=== PATIENT | female | born 2000 | race Caucasian/White ===

== ENCOUNTER 2019-01-01 18:11 | Emergency (ER) | payer BC, OTHER ==
[2019-01-01 18:23] VITALS: BP 110/66
--- NOTE | 2019-01-01 18:43 | EDM.PDOC ---
ED HPI GENERAL MEDICAL PROBLEM - General Chief Complaint: ENT Problem Stated Complaint: SORE THROAT Time Seen by Provider: 01/01/19 18:17 Source of Information: Reports: Patient History Limitations: Reports: No Limitations - History of Present Illness INITIAL COMMENTS - FREE TEXT/NARRATIVE: HISTORY AND PHYSICAL: History of present illness: Patient is a 18-year-old female who presents to the emergency room with complaints of sore throat. Patient does have a history of tonsillitis and strep throat. She states previously she had been on "for different antibiotics" did have a drug reaction to these. She states she cannot take any penicillins or doxycycline's. She denies any fever, chills, chest pain, shortness of breath or cough. Denies any GI or symptoms. She has been eating and drinking minimally as this does cause pain. Voiding and having regular bowel movements. Review of systems: As per history of present illness and below otherwise all systems reviewed and negative. Past medical history: As per history of present illness and as reviewed below otherwise noncontributory. Surgical history: As per history of present illness and as reviewed below otherwise noncontributory. Social history: See social history for further information Family history: As per history of present illness and as reviewed below otherwise noncontributory. Physical exam: General: Well-developed and well-nourished 18-year-old female. Alert and oriented. Nontoxic appearing and in no acute distress. HEENT: Atraumatic, normocephalic, pupils equal and reactive bilaterally, negative for conjunctival pallor or scleral icterus, mucous membranes moist, TMs normal bilaterally, +1 tonsillar swelling equal bilaterally with exudate and erythema (no evidence of pillar shifting/concern for abscess), neck supple, nontender, trachea midline. No drooling or trismus noted. No meningeal signs. No hot potato voice noted. Lungs: Clear to auscultation, breath sounds equal bilaterally, chest nontender. Heart: S1S2, regular rate and rhythm without overt murmur Abdomen: Soft, nondistended, nontender. Negative for masses or hepatosplenomegaly. Negative for costovertebral tenderness. Pelvis: Stable nontender. Genitourinary: Deferred. Rectal: Deferred. Skin: Intact, warm, dry. No lesions or rashes noted. Extremities: Atraumatic, negative for cords or calf pain. Neurovascular unremarkable. Neuro: Awake, alert, oriented. Cranial nerves II through XII unremarkable. Cerebellum unremarkable. Motor and sensory unremarkable throughout. Exam nonfocal. Notes: Patient has exudate on the bilateral tonsils, I will treat with clindamycin and give some Phenergan with codeine as she states this is very painful and not relieved with any [id number] products. I encouraged her to follow up with the bench shear operator as she may need to consider a tonsillectomy. Supportive care measures were reviewed and discussed. Voices understanding and is agreeable to plan of care. Denies any further questions or concerns at this time. Diagnostics: None Therapeutics: None Prescription: Clindamycin Phenergan with codeine Impression: Pharyngitis Plan: 1. Take your medication as directed. 2. Warm Salt water gargles (rinse and spit) 3-4 x daily. Please get a new tooth brush after completion of your medication 3. Tylenol and or ibuprofen as needed for pain management. 4. Follow-up with your primary care provider in the next 1-2 days. Return to the ED as needed and as discussed. Definitive disposition and diagnosis as appropriate pending reevaluation and review of above. 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 Musculoskeletal History: Reports: None Neurological History: Reports: Concussion Psychiatric History: Reports: ADHD, Anxiety, Bipolar, Depression, Suicide Attempt, Suicidal Ideation Endocrine/Metabolic History: Reports: None Hematologic History: Reports: None Immunologic History: Reports: None Oncologic (Cancer) History: Reports: None Dermatologic History: Reports: None - Infectious Disease History Infectious Disease History: Reports: Chicken Pox - Past Surgical History Head Surgeries/Procedures: Reports: None HEENT Surgical History: Reports: Oral Surgery Social & Family History - Family History Family Medical History: Noncontributory - Caffeine Use Caffeine Use: Reports: Coffee ED ROS ENT - Review of Systems Review Of Systems: ROS reveals no pertinent complaints other than HPI. ED EXAM, ENT - Physical Exam Exam: See Below (See dictation) Course - Vital Signs Last Recorded V/S: Last Vital Signs Temp 98.3 F 01/01/19 18:21 Pulse 108 H 01/01/19 18:21 Resp 18 01/01/19 18:21 BP 110/66 01/01/19 18:21 Pulse Ox 95 01/01/19 18:21 Departure - Departure Time of Disposition: 18:43 Disposition: Home, Self-Care 01 Clinical Impression: Pharyngitis Qualifiers: Pharyngitis/tonsillitis etiology: unspecified etiology Qualified Code(s): J02.9 - Acute pharyngitis, unspecified - Discharge Information Instructions: Pharyngitis, [id number] Referrals: PCP,Unknown [Primary Care Provider] - Forms: ED Department Discharge Additional Instructions: The following information is given to patients seen in the emergency department who are being discharged to home. This information is to outline your options for follow-up care. We provide all patients seen in our emergency department with a follow-up referral. The need for follow-up, as well as the timing and circumstances, are variable depending upon the specifics of your emergency department visit. If you don't have a primary care physician on staff, we will provide you with a referral. We always advise you to contact your personal physician following an emergency department visit to inform them of the circumstance of the visit and for follow-up with them and/or the need for any referrals to a consulting specialist. The emergency department will also refer you to a specialist when appropriate. This referral assures that you have the opportunity for follow-up care with a specialist. All of these measure are taken in an effort to provide you with optimal care, which includes your follow-up. Under all circumstances we always encourage you to contact your private physician who remains a resource for coordinating your care. When calling for follow-up care, please make the office aware that this follow-up is from your recent emergency room visit. If for any reason you are refused follow-up, please contact the [facility] Emergency Department at and asked to speak to the emergency department charge nurse. LAVINIA [facility] [address] [place] [address] [facility] [address] [place] [id number] 1. Take your medication as directed. 2. Warm Salt water gargles (rinse and spit) 3-4 x daily. Please get a new tooth brush after completion of your medication 3. Tylenol and or ibuprofen as needed for pain management. 4. Follow-up with your primary care provider in the next 1-2 days. Return to the ED as needed and as discussed.
== END 2019-01-01 18:56 | disposition home or self-care (01) ==
LOC: MW.ED 18:11
DX: J02.9 Acute pharyngitis, unspecified (principal); Z88.1 Allergy status to other antibiotic agents; Z88.8 Allergy status to other drugs, medicaments and biological substances; Z79.899 Other long term (current) drug therapy
CPT/HCPCS: 99283

== ENCOUNTER 2019-11-27 15:58 | Emergency (ER) | payer BC ==
--- NOTE | 2019-11-27 16:38 | EDM.PDOC ---
ED HPI GENERAL MEDICAL PROBLEM - General Chief Complaint: ENT Problem Stated Complaint: flu, ear infection Time Seen by Provider: 11/27/19 16:08 Source of Information: Reports: Patient History Limitations: Reports: No Limitations - History of Present Illness INITIAL COMMENTS - FREE TEXT/NARRATIVE: Patient is a 19-year-old female who is complaining of having a sore throat and flulike symptoms for the last several days. She is complaining having pain to her right ear and her right throat is painful. Patient also states she had a fainting spell recently and may have fallen injuring her right flank. Is any dysuria or hematuria. She has not been nauseous or vomiting. Pain is worse when she moves her feels that area though has no bruising or contusion present. She denies any chest or rib pain. Duration: Getting Worse Location: Reports: Face, Abdomen Quality: Reports: Ache Severity: Moderate Improves with: Reports: None Worsens with: Reports: Eating Associated Symptoms: Reports: No Other Symptoms. Denies: Cough, Fever/Chills, Headaches, Nausea/Vomiting throat Pain Score (Numeric/FACES): 7 - Related Data Allergies Allergy/AdvReac Type Severity Reaction Status Date / Time amoxicillin Allergy Hives Verified 01/01/19 18:20 doxycycline Allergy Hives Verified 10/16/18 19:21 Penicillins Allergy Hives Verified 11/27/19 16:15 Home Meds: Home Meds Venlafaxine [Effexor] 200 mg PO DAILY 10/14/18 [History] lamoTRIgine [Lamictal] 50 mg PO DAILY 10/14/18 [History] Past Medical History - Past Health History Medical/Surgical History: Denies Medical/Surgical History Cardiovascular History: Reports: None Respiratory History: Reports: None Gastrointestinal History: Reports: None Genitourinary History: Reports: None 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 Musculoskeletal History: Reports: None Neurological History: Reports: Concussion Psychiatric History: Reports: ADHD, Anxiety, Bipolar, Depression, Suicide Attempt, Suicidal Ideation Endocrine/Metabolic History: Reports: None Hematologic History: Reports: None Immunologic History: Reports: None Oncologic (Cancer) History: Reports: None Dermatologic History: Reports: None - Infectious Disease History Infectious Disease History: Reports: Chicken Pox - Past Surgical History Head Surgeries/Procedures: Reports: None HEENT Surgical History: Reports: Oral Surgery Social & Family History - Family History Family Medical History: Noncontributory - Tobacco Use Smoking Status *Q: Current Every Day Smoker Years of Tobacco use: 3 Packs/Tins Daily: 1 - Caffeine Use Caffeine Use: Reports: Coffee - Recreational Drug Use Recreational Drug Use: No ED ROS ENT - Review of Systems Review Of Systems: Comprehensive ROS is negative, except as noted in HPI. ED EXAM, ENT - Physical Exam Exam: See Below Text/Narrative:: Exam: See Below Exam Limited By: No Limitations Head: Atraumatic Neck: Normal Inspection. No: Carotid Bruit, Lymphadenopathy (R) Respiratory/Chest: No Respiratory Distress, Lungs Clear, Normal Breath Sounds, No Accessory Muscle Use. No: Chest Non-Tender Cardiovascular: Normal Peripheral Pulses, Regular Rate, Rhythm, No Edema, No JVD GI/Abdominal: Normal Bowel Sounds, Tender on right flank mildly. There is no mass or guarding. Back Exam: Normal Inspection. No: CVA Tenderness (R) Extremities: Normal Inspection. No: No Pedal Edema Neurological: Alert, Oriented, Normal Cognition Psychiatric: Normal Affect Skin Exam: Warm Lymphatic: No Adenopathy Course - Vital Signs Text/Narrative:: Patient's urine is completely normal. Her influenza and strep screens are both negative. I feel that she has worse while laying on her right tonsil which may be early peritonsillar abscess. I am putting her on clindamycin for this. I am recommending that she take children's ibuprofen. Last Recorded V/S: Last Vital Signs Temp 37.2 C 11/27/19 16:16 Pulse 103 H 11/27/19 16:16 Resp 16 11/27/19 16:16 BP 115/64 11/27/19 16:16 Pulse Ox 98 11/27/19 16:16 - Orders/Labs/Meds Orders: Active Orders 24 hr Category Date Time Status CULTURE STREP A CONFIRMATION [RM] Stat Lab 11/27/19 16:27 Results STREP SCRN A RAPID W CULT CONF [RM] Stat Lab 11/27/19 16:27 Results UA W/MICROSCOPIC [URIN] Stat Lab 11/27/19 16:53 Results Labs: Laboratory Tests 11/27/19 Range/Units 16:53 Urine Color YELLOW Urine Appearance CLEAR Urine pH 6.5 (5.0-8.0) Ur Specific [place] 1.020 (1.001-1.035) Urine Protein NEGATIVE (NEGATIVE) mg/dL Urine Glucose (UA) NEGATIVE (NEGATIVE) mg/dL Urine Ketones NEGATIVE (NEGATIVE) mg/dL Urine Occult Blood NEGATIVE (NEGATIVE) Urine Nitrite NEGATIVE (NEGATIVE) Urine Bilirubin NEGATIVE (NEGATIVE) Urine Urobilinogen 1.0 (<2.0) EU/dL Ur Leukocyte Esterase NEGATIVE (NEGATIVE) Departure - Departure Time of Disposition: 17:33 Disposition: Home, Self-Care 01 Condition: Good Clinical Impression: Peritonsillar abscess - Discharge Information Instructions: Peritonsillar Abscess, [id number] Referrals: PCP,Unknown [Primary Care Provider] - Forms: ED Department Discharge Additional Instructions: Liquid ibuprofen as needed. Clindamycin as prescribed. Increase fluids. Return to ER if worse. Follow-up with PCP if symptoms continue. Care Plan Goals: The following information is given to patients seen in the emergency department who are being discharged to home. This information is to outline your options for follow-up care. We provide all patients seen in our emergency department with a follow-up referral. The need for follow-up, as well as the timing and circumstances, are variable depending upon the specifics of your emergency department visit. If you don't have a primary care physician on staff, we will provide you with a referral. We always advise you to contact your personal physician following an emergency department visit to inform them of the circumstance of the visit and for follow-up with them and/or the need for any referrals to a consulting specialist. The emergency department will also refer you to a specialist when appropriate. This referral assures that you have the opportunity for follow-up care with a specialist. All of these measure are taken in an effort to provide you with optimal care, which includes your follow-up. Under all circumstances we always encourage you to contact your private physician who remains a resource for coordinating your care. When calling for follow-up care, please make the office aware that this follow-up is from your recent emergency room visit. If for any reason you are refused follow-up, please contact the [facility] Emergency Department at and asked to speak to the emergency department charge nurse. Sepsis Event Note - Evaluation Sepsis Screening Result: Possible Sepsis Risk - Focused Exam Vital Signs: Vital Signs Temp Pulse Resp BP Pulse Ox 11/27/19 16:16 37.2 C 103 H 16 115/64 98 Date Exam was Performed: 11/27/19 Time Exam was Performed: 17:29 - My Orders Last 24 Hours: My Active Orders 11/27/19 16:53 UA W/MICROSCOPIC [URIN] Stat - Assessment/Plan Last 24 Hours: My Active Orders 11/27/19 16:53 UA W/MICROSCOPIC [URIN] Stat
[2019-11-27 18:07] VITALS: BP 124/64; PULSE 107
== END 2019-11-27 18:00 | disposition home or self-care (01) ==
LOC: MW.ED 15:58
DX: J36 Peritonsillar abscess (principal); F41.9 Anxiety disorder, unspecified; F32.9 Major depressive disorder, single episode, unspecified; F17.210 Nicotine dependence, cigarettes, uncomplicated; Z88.1 Allergy status to other antibiotic agents; Z88.0 Allergy status to penicillin; Z79.899 Other long term (current) drug therapy
CPT/HCPCS: 81001; 87081; 87804; 87880-QW; 99283

== ENCOUNTER 2020-02-26 06:54 | Emergency (ER) | payer BC ==
--- NOTE | 2020-02-26 07:17 | EDM.PDOC ---
ED HPI GENERAL MEDICAL PROBLEM - General Chief Complaint: Genitourinary Problem Stated Complaint: HURTS WHEN URINATE Time Seen by Provider: 02/26/20 07:06 Source of Information: Reports: Patient History Limitations: Reports: No Limitations - History of Present Illness Duration: Hour(s): (5) Location: Reports: Back, Radiates to (Left flank) Quality: Reports: Burning, Pressure (left flank) Severity: Moderate Improves with: Reports: None Worsens with: Reports: None Associated Symptoms: Reports: No Other Symptoms right flank Pain Score (Numeric/FACES): 8 - Related Data Allergies Allergy/AdvReac Type Severity Reaction Status Date / Time amoxicillin Allergy Hives Verified 02/26/20 07:01 doxycycline Allergy Hives Verified 02/26/20 07:01 Penicillins Allergy Hives Verified 02/26/20 07:01 Home Meds: Home Meds Venlafaxine [Effexor] 200 mg PO DAILY 10/14/18 [History] lamoTRIgine [Lamictal] 37.5 mg PO DAILY 10/14/18 [History] Estrogens,Esterified [Menest] 02/26/20 [History] Past Medical History - Past Health History Medical/Surgical History: Denies Medical/Surgical History Cardiovascular History: Reports: None Respiratory History: Reports: None Gastrointestinal History: Reports: None Genitourinary History: Reports: None 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 Musculoskeletal History: Reports: None Neurological History: Reports: Concussion Psychiatric History: Reports: ADHD, Anxiety, Bipolar, Depression, Suicide Attempt, Suicidal Ideation Endocrine/Metabolic History: Reports: None Hematologic History: Reports: None Immunologic History: Reports: None Oncologic (Cancer) History: Reports: None Dermatologic History: Reports: None - Infectious Disease History Infectious Disease History: Reports: Chicken Pox - Past Surgical History Head Surgeries/Procedures: Reports: None HEENT Surgical History: Reports: Oral Surgery Social & Family History - Family History Family Medical History: Noncontributory - Tobacco Use Smoking Status *Q: Current Every Day Smoker Years of Tobacco use: 3 Packs/Tins Daily: 0.1 - Caffeine Use Caffeine Use: Reports: Energy Drinks - Recreational Drug Use Recreational Drug Use: No ED ROS GENERAL - Review of Systems Review Of Systems: See Below Constitutional: Reports: No Symptoms, Weakness HEENT: Reports: No Symptoms Respiratory: Reports: No Symptoms Cardiovascular: Reports: No Symptoms Endocrine: Reports: No Symptoms GI/Abdominal: Reports: No Symptoms : Reports: Dysuria, Flank Pain, Frequency Musculoskeletal: Reports: No Symptoms Skin: Reports: No Symptoms Neurological: Reports: No Symptoms Psychiatric: Reports: No Symptoms Hematologic/Lymphatic: Reports: No Symptoms Immunologic: Reports: No Symptoms ED EXAM, RENAL/ - Physical Exam Exam: See Below Exam Limited By: No Limitations General Appearance: Alert, WD/WN, No Apparent Distress Eye Exam: Bilateral Eye: Normal Fundi, Normal Inspection, PERRL Ears: Normal External Exam, Normal Canal, Hearing Grossly Normal, Normal TMs Nose: Normal Inspection, Normal Mucosa, No Blood Throat/Mouth: Normal Inspection, Normal Lips, Normal Teeth, Normal Gums, Normal Oropharynx, No Airway Compromise Head: Atraumatic, Normocephalic Neck: Normal Inspection, Supple, Non-Tender, Full Range of Motion Respiratory/Chest: No Respiratory Distress, Lungs Clear, Normal Breath Sounds, No Accessory Muscle Use Cardiovascular: Normal Peripheral Pulses, Regular Rate, Rhythm, No Edema, No Gallop, No JVD, No Murmur GI/Abdominal: Normal Bowel Sounds, Soft, Non-Tender, No Organomegaly, No Distention, No Abnormal Bruit (Female) Exam: Deferred Rectal (Female) Exam: Deferred Back Exam: Normal Inspection Extremities: Normal Inspection, Normal Range of Motion Neurological: Alert, Oriented, CN II-XII Intact, Normal Cognition, Normal Gait, Normal Reflexes, No Motor/Sensory Deficits Psychiatric: Normal Affect, Normal Mood Skin Exam: Warm, Dry, Intact, Normal Color, No Rash Lymphatic: No Adenopathy Course - Vital Signs Text/Narrative:: 19-year-old female presents to the emergency room with a chief complaint of left flank pain and burning on urination for the past 6 hours. Patient denies fever and chills. Patient denies nausea vomiting diarrhea. Patient denies being because she is on control medication. Never had similar symptoms in the past. The patient's CT scan shows a possible early urinary tract infection. The patient's UA shows early UTI possibly. Patient will be discharged home. CT scan shows no evidence of stones Last Recorded V/S: Last Vital Signs Temp 96.9 F 02/26/20 07:02 Pulse 99 02/26/20 07:02 Resp 18 02/26/20 07:02 BP 112/72 02/26/20 07:02 Pulse Ox 99 02/26/20 07:02 - Orders/Labs/Meds Orders: Active Orders 24 hr Category Date Time Status CULTURE URINE [RM] Stat Lab 02/26/20 07:10 Received Labs: Laboratory Tests 02/26/20 02/26/20 Range/Units 07:10 07:10 Urine Color YELLOW Urine Appearance SLT CLOUDY Urine pH 6.0 (5.0-8.0) Ur Specific [place] 1.020 (1.001-1.035) Urine Protein 30 H (NEGATIVE) mg/dL Urine Glucose (UA) NEGATIVE (NEGATIVE) mg/dL Urine Ketones NEGATIVE (NEGATIVE) mg/dL Urine Occult Blood MODERATE H (NEGATIVE) Urine Nitrite NEGATIVE (NEGATIVE) Urine Bilirubin NEGATIVE (NEGATIVE) Urine Urobilinogen 0.2 (<2.0) EU/dL Ur Leukocyte Esterase TRACE H (NEGATIVE) Urine RBC 5-8 (0-2/HPF) Urine WBC 1-3 (0-5/HPF) Ur Epithelial Cells FEW (NONE-FEW) Urine Bacteria FEW (NEGATIVE) Urine Mucus LIGHT (NONE-MOD) Urine HCG, Qual NEGATIVE (NEGATIVE) Meds: Medications Discontinued Medications Generic Name Dose Route Start Last Admin Trade Name Freq PRN Reason Stop Dose Admin Sodium Chloride 1,000 mls @ 1,000 mls/hr 02/26/20 07:27 02/26/20 07:43 Normal Saline IV 02/26/20 08:26 1,000 mls/hr .Bolus ONE Administration Ketorolac Tromethamine 30 mg 02/26/20 07:27 02/26/20 07:43 Toradol IVPUSH 02/26/20 07:28 30 mg ONETIME ONE Administration Departure - Departure Time of Disposition: 09:43 Disposition: Home, Self-Care 01 Clinical Impression: UTI, Urinary tract infectious disease - Discharge Information Instructions: Urinary Tract Infection, Adult, [id number] Referrals: Valerie Berman DIRECTOR OF EMERGENCY NURSING [Primary Care Provider] - Forms: ED Department Discharge Sepsis Event Note - Evaluation Sepsis Screening Result: No Definite Risk - Focused Exam Vital Signs: Vital Signs Temp Pulse Resp BP Pulse Ox 02/26/20 07:02 96.9 F 99 18 112/72 99 Date Exam was Performed: 02/26/20 Time Exam was Performed: 09:40 - My Orders Last 24 Hours: My Active Orders 02/26/20 07:10 CULTURE URINE [] Stat - Assessment/Plan Last 24 Hours: My Active Orders 02/26/20 07:10 CULTURE URINE [] Stat
[2020-02-26] MEDS ORDERED: Sodium Chloride 0.9% 1,000 ML IV ONE (07:27)
[2020-02-26] MEDS ORDERED: Ketorolac 30 MG/ML SDV IVPUSH ONE (07:27)
--- NOTE | 2020-02-26 09:32 | CT ---
CT abdomen and pelvis Technique: Multiple axial sections were obtained from above the dome of the diaphragm inferiorly through the pubic symphysis. Intravenous and oral contrast was not utilized. Study has been performed as a ureteral stone protocol. Comparison: Prior CT abdomen and pelvis study of 10/16/18. Findings: Kidneys show no abnormal calcifications. No ureteral dilatation or ureteral stone is seen. No bladder calculi are noted. Visualized lung bases show nothing acute. Noncontrast appearance of the liver and spleen appear within normal limits. Adrenal glands show no nodule. Pancreas is within normal limits. Gallbladder contains no calcified gallstones. Aorta shows no aneurysm. No retroperitoneal adenopathy or mesenteric abnormalities are seen. Appendix is seen which is normal in size. No free fluid or inflammatory change is seen. No pelvic mass or adenopathy is noted. Impression: 1. No renal calculi, ureteral dilatation or ureteral stone is seen. 2. Nothing acute is appreciated on noncontrast CT study of the abdomen and pelvis. Diagnostic code #1 This report was dictated in MDT
[2020-02-26] MEDS ORDERED: Cephalexin 500 MG Cap PO ONE (09:45)
[2020-02-26 09:56] VITALS: BP 103/58; PULSE 82
== END 2020-02-26 09:59 | disposition home or self-care (01) ==
LOC: MW.ED 06:54
DX: N39.0 Urinary tract infection, site not specified (principal); F31.9 Bipolar disorder, unspecified; F41.9 Anxiety disorder, unspecified; F17.210 Nicotine dependence, cigarettes, uncomplicated; Z88.0 Allergy status to penicillin; Z88.1 Allergy status to other antibiotic agents; Z79.899 Other long term (current) drug therapy
CPT/HCPCS: 74176; 81001; 81025; 87086; 87088; 87186; 96361; 96374; 99284; A9270; J1885; J7030; 99283

== ENCOUNTER 2020-03-15 22:00 | Emergency (ER) | payer BC ==
[2020-03-15] MEDS ORDERED: Diltiazem 25 MG/5 ML SDV IVPUSH ONE (22:11)
[2020-03-15] MEDS ORDERED: Sodium Chloride 0.9% 10 ML Syringe FLUSH PRN (22:30)
[2020-03-15] MEDS ORDERED: Sodium Chloride 0.9% 1,000 ML IV ONE (22:30)
[2020-03-15] MEDS ORDERED: Sodium Chloride 0.9% 2.5 ML Syringe FLUSH PRN (22:30)
[2020-03-15 23:01] LABS: BLOOD UREA NITROGEN,BUN 8 mg/dL (7.0-18.0); CARBON DIOXIDE,CO2 24.9 mmol/L (21.0-32.0); CHLORIDE,CL 100 mmol/L (98-107); GLUCOSE RANDOM 127 mg/dL (74-106); POTASSIUM,K 3.6 mmol/L (3.5-5.1); SODIUM,NA 137 mmol/L (136-145)
--- NOTE | 2020-03-15 23:49 | EDM.PDOC ---
ED HPI GENERAL MEDICAL PROBLEM - General Chief Complaint: General Stated Complaint: FEVER, IN AND OUT OF CONSCIOUSNESS Time Seen by Provider: 03/15/20 22:03 Source of Information: Reports: Patient History Limitations: Reports: No Limitations - History of Present Illness INITIAL COMMENTS - FREE TEXT/NARRATIVE: 19-year-old female with past medical history of recent UTI, endometriosis, PID presenting with fever, abdominal pain, and generalized weakness. She reports a 2 to 3-day history of right flank pain, right lower quadrant abdominal pain, and fever at home. No self treatment prior to arrival. She was recently seen in our ED for UTI and finished a course of oral antibiotics. She complains of generalized weakness but no focal extremity numbness or weakness or other strokelike symptoms. No other complaints are voiced. - Related Data Allergies Allergy/AdvReac Type Severity Reaction Status Date / Time amoxicillin Allergy Hives Verified 03/15/20 22:13 doxycycline Allergy Hives Verified 03/15/20 22:13 Penicillins Allergy Hives Verified 03/15/20 22:13 Home Meds: Home Meds Venlafaxine [Effexor] 200 mg PO DAILY 10/14/18 [History] lamoTRIgine [Lamictal] 37.5 mg PO DAILY 10/14/18 [History] Estrogens,Esterified [Menest] 02/26/20 [History] cephALEXin [Keflex] 500 mg PO Q12H #10 cap 02/26/20 [Rx] Leuprolide [Lupron Depot 3-Month] mg INJECT ASDIRECTED 03/15/20 [History] Past Medical History - Past Health History Medical/Surgical History: Denies Medical/Surgical History Cardiovascular History: Reports: None Respiratory History: Reports: None Gastrointestinal History: Reports: None Genitourinary History: Reports: None [employer] History: Reports: Endometriosis, PID Musculoskeletal History: Reports: None Neurological History: Reports: Concussion Psychiatric History: Reports: ADHD, Anxiety, Bipolar, Depression, Suicide Attempt, Suicidal Ideation Endocrine/Metabolic History: Reports: None Hematologic History: Reports: None Immunologic History: Reports: None Oncologic (Cancer) History: Reports: None Dermatologic History: Reports: None - Infectious Disease History Infectious Disease History: Reports: None - Past Surgical History Head Surgeries/Procedures: Reports: None HEENT Surgical History: Reports: Oral Surgery Social & Family History - Family History Family Medical History: Noncontributory - Caffeine Use Caffeine Use: Reports: Energy Drinks - Recreational Drug Use Recreational Drug Use: Yes Recreational Drug Type: Reports: Marijuana/Hashish Recreational Drug Use Frequency: Rarely ED ROS GENERAL - Review of Systems Review Of Systems: See Below Constitutional: Reports: Fever, Weakness. Denies: Chills, Diaphoresis HEENT: Reports: No Symptoms Respiratory: Reports: Cough (Fleeting cough on the way to the emergency department). Denies: Shortness of Breath, Wheezing Cardiovascular: Denies: Chest Pain, Edema, Syncope Endocrine: Reports: Fatigue GI/Abdominal: Reports: Abdominal Pain, Nausea. Denies: Black Stool, Bloody Stool, Diarrhea, Decreased Appetite, Distension, Hematemesis, Hematochezia, Melena, Vomiting : Denies: Discharge, Dysuria, Flank Pain, Frequency, Urgency Musculoskeletal: Denies: Joint Swelling Skin: Denies: Jaundice, Rash Neurological: Denies: Headache, Paresthesia, Syncope, Tingling, Weakness Psychiatric: Reports: No Symptoms Hematologic/Lymphatic: Reports: No Symptoms Immunologic: Reports: No Symptoms ED EXAM, GENERAL - Physical Exam Exam: See Below Free Text/Narrative:: Vital signs reviewed. Nursing notes reviewed. Constitutional: Awake, alert, non-distressed, tired appearing. Head: Normocephalic, atraumatic. Eyes: EOMI, conjunctiva normal, no discharge, no scleral icterus. Ears, Nose, Throat: External ears and ears normal, moist oral mucosa. Cardiovascular: Tachycardic, 2+ radial pulse, capillary refill less than 2 seconds. Pulmonary: normal work of breathing, no accessory muscle use. Abdomen/GI: Soft, minimal tenderness in the right lower quadrant, nondistended, no guarding or rigidity, no masses. No CVA tenderness bilaterally. Musculoskeletal: No deformities. Integumentary: Appropriate color for ethnicity, warm, dry, no pallor or jaundice , no rash. Neurologic: Alert, answering questions appropriately, normal speech, no facial droop, moving all extremities symmetrically but with poor effort. Psychiatric: Appropriate mood and affect, normal thought process. Course - Vital Signs Text/Narrative:: Patient tachycardic, afebrile, well-appearing, looks nontoxic. Differential diagnosis includes but is not limited to: UTI, pyelonephritis, appendicitis, cholecystitis, intra-abdominal infection, bacteremia, electrolyte disturbance, volume depletion, anemia, etc. 2350: CBC shows normal cell lines. INR is within normal limits. Lactate is normal. Hepatic markers are reassuring. Troponin testing is negative. CRP is elevated at 7.20. test is negative. Urinalysis is bland, no evidence of infection. Awaiting imaging studies. CT imaging concerning for pyelonephritis. Urine culture added on. Heart rate now normal after fluids. Blood pressure 90s systolic with MAPs in the 70s. Patient appears comfortable and is feeling better. Stable to discharge home with a 14-day treatment of Bactrim DS (given recent Keflex treatment) along with [id number] acetaminophen and ibuprofen. Bactrim DS prescribed to [facility] machine. Strict ED return precautions provided. Discharged in good condition. Patient is stable to discharge home with outpatient primary care follow-up. Strict emergency department return precautions were provided, patient indicated understanding. All questions were answered prior to departure. Discharged in good condition. Last Recorded V/S: Last Vital Signs Temp 36.3 C 03/15/20 22:15 Pulse 89 03/16/20 02:06 Resp 18 03/16/20 02:06 BP 97/52 L 03/16/20 02:06 Pulse Ox 98 03/16/20 02:06 - Orders/Labs/Meds Orders: Active Orders 24 hr Category Date Time Status CULTURE BLOOD [BC] Stat Lab 03/15/20 22:30 Received CULTURE BLOOD [BC] Stat Lab 03/15/20 22:44 Received CULTURE URINE [RM] Stat Lab 03/16/20 00:00 Received Sodium Chloride 0.9% [Saline Flush] Med 03/15/20 22:30 Active 10 ml FLUSH ASDIRECTED PRN Sodium Chloride 0.9% [Saline Flush] Med 03/15/20 22:30 Active 2.5 ml FLUSH ASDIRECTED PRN Blood Culture x2 Reflex Set [OM.PC] Stat Oth 03/15/20 22:30 Ordered Pulse Oximetry Continuous Monitoring [OM.PC] Routine Oth 03/15/20 22:30 Ordered Saline Lock Insert [OM.PC] Stat Oth 03/15/20 22:30 Ordered Medication Orders Sodium Chloride (Saline Flush) 10 ml FLUSH ASDIRECTED PRN PRN Reason: Keep Vein Open Sodium Chloride (Saline Flush) 2.5 ml FLUSH ASDIRECTED PRN PRN Reason: Keep Vein Open Labs: Laboratory Tests 03/15/20 03/15/20 03/15/20 Range/Units 22:30 22:30 22:30 WBC 7.56 (4.0-11.0) K/uL RBC 4.17 L (4.30-5.90) M/uL Hgb 12.2 (12.0-16.0) g/dL Hct 37.3 (36.0-46.0) % MCV 89.4 (80.0-98.0) fL MCH 29.3 (27.0-32.0) pg MCHC 32.7 (31.0-37.0) g/dL RDW Std Deviation 39.8 (28.0-62.0) fl RDW Coeff of Lalita 12 (11.0-15.0) % Plt Count 269 (150-400) K/uL MPV 9.10 (7.40-12.00) fL Neut % (Auto) 72.0 (48.0-80.0) % Lymph % (Auto) 13.1 L (16.0-40.0) % Apache % (Auto) 14.6 (0.0-15.0) % Eos % (Auto) 0.0 (0.0-7.0) % Baso % (Auto) 0.3 (0.0-1.5) % Neut # (Auto) 5.5 (1.4-5.7) K/uL Lymph # (Auto) 1.0 (0.6-2.4) K/uL [place] # (Auto) 1.1 H (0.0-0.8) K/uL Eos # (Auto) 0.0 (0.0-0.7) K/uL Baso # (Auto) 0.0 (0.0-0.1) K/uL Nucleated RBC % 0.0 /100WBC Nucleated RBCs # 0 K/uL INR 1.04 Lactate 0.8 (0.20-2.00) mmol/L Sodium (136-145) mmol/L Potassium (3.5-5.1) mmol/L Chloride (98-107) mmol/L Carbon Dioxide (21.0-32.0) mmol/L BUN (7.0-18.0) mg/dL Creatinine (0.6-1.0) mg/dL Est Cr Clr Drug Dosing mL/min Estimated GFR (MDRD) ml/min Glucose (74-106) mg/dL Calcium (8.5-10.1) mg/dL Total Bilirubin (0.2-1.0) mg/dL AST (15-37) IU/L ALT (14-63) IU/L Alkaline Phosphatase (46-116) U/L Troponin I (0.000-0.056) ng/mL C-Reactive Protein (0.00-0.90) mg/dL Total Protein (6.4-8.2) g/dL Albumin (3.4-5.0) g/dL Globulin (2.6-4.0) g/dL Albumin/Globulin Ratio (0.9-1.6) HCG, Qual (NEG) Urine Color Urine Appearance Urine pH (5.0-8.0) Ur Specific [place] (1.001-1.035) Urine Protein (NEGATIVE) mg/dL Urine Glucose (UA) (NEGATIVE) mg/dL Urine Ketones (NEGATIVE) mg/dL Urine Occult Blood (NEGATIVE) Urine Nitrite (NEGATIVE) Urine Bilirubin (NEGATIVE) Urine Urobilinogen (<2.0) EU/dL Ur Leukocyte Esterase (NEGATIVE) Urine RBC (0-2/HPF) Urine WBC (0-5/HPF) Ur Epithelial Cells (NONE-FEW) Urine Bacteria (NEGATIVE) 03/15/20 03/15/20 03/15/20 Range/Units 22:30 22:30 23:16 WBC (4.0-11.0) K/uL RBC (4.30-5.90) M/uL Hgb (12.0-16.0) g/dL Hct (36.0-46.0) % MCV (80.0-98.0) fL MCH (27.0-32.0) pg MCHC (31.0-37.0) g/dL RDW Std Deviation (28.0-62.0) fl RDW Coeff of Lalita (11.0-15.0) % Plt Count (150-400) K/uL MPV (7.40-12.00) fL Neut % (Auto) (48.0-80.0) % Lymph % (Auto) (16.0-40.0) % [place] % (Auto) (0.0-15.0) % Eos % (Auto) (0.0-7.0) % Baso % (Auto) (0.0-1.5) % Neut # (Auto) (1.4-5.7) K/uL Lymph # (Auto) (0.6-2.4) K/uL [place] # (Auto) (0.0-0.8) K/uL Eos # (Auto) (0.0-0.7) K/uL Baso # (Auto) (0.0-0.1) K/uL Nucleated RBC % /100WBC Nucleated RBCs # K/uL INR Lactate (0.20-2.00) mmol/L Sodium 137 (136-145) mmol/L Potassium 3.6 (3.5-5.1) mmol/L Chloride 100 (98-107) mmol/L Carbon Dioxide 24.9 (21.0-32.0) mmol/L BUN 8 (7.0-18.0) mg/dL Creatinine 0.9 (0.6-1.0) mg/dL Est Cr Clr Drug Dosing 78.20 mL/min Estimated GFR (MDRD) > 60.0 ml/min Glucose 127 H (74-106) mg/dL Calcium 8.6 (8.5-10.1) mg/dL Total Bilirubin 0.5 (0.2-1.0) mg/dL AST 19 (15-37) IU/L ALT 42 (14-63) IU/L Alkaline Phosphatase 86 (46-116) U/L Troponin I < 0.050 (0.000-0.056) ng/mL C-Reactive Protein 7.20 H (0.00-0.90) mg/dL Total Protein 7.6 (6.4-8.2) g/dL Albumin 3.9 (3.4-5.0) g/dL Globulin 3.7 (2.6-4.0) g/dL Albumin/Globulin Ratio 1.1 (0.9-1.6) HCG, Qual NEGATIVE (NEG) Urine Color YELLOW Urine Appearance CLEAR Urine pH 6.5 (5.0-8.0) Ur Specific [place] <= 1.005 (1.001-1.035) Urine Protein NEGATIVE (NEGATIVE) mg/dL Urine Glucose (UA) NEGATIVE (NEGATIVE) mg/dL Urine Ketones NEGATIVE (NEGATIVE) mg/dL Urine Occult Blood NEGATIVE (NEGATIVE) Urine Nitrite NEGATIVE (NEGATIVE) Urine Bilirubin NEGATIVE (NEGATIVE) Urine Urobilinogen 0.2 (<2.0) EU/dL Ur Leukocyte Esterase NEGATIVE (NEGATIVE) Urine RBC 0-1 (0-2/HPF) Urine WBC 0-2 (0-5/HPF) Ur Epithelial Cells RARE (NONE-FEW) Urine Bacteria RARE (NEGATIVE) Meds: Medications Generic Name Dose Route Start Last Admin Trade Name Freq PRN Reason Stop Dose Admin Sodium Chloride 10 ml 03/15/20 22:30 Saline Flush FLUSH ASDIRECTED PRN Keep Vein Open Sodium Chloride 2.5 ml 03/15/20 22:30 Saline Flush FLUSH ASDIRECTED PRN Keep Vein Open Discontinued Medications Generic Name Dose Route Start Last Admin Trade Name Freq PRN Reason Stop Dose Admin Acetaminophen 1,000 mg 03/16/20 00:45 03/16/20 00:50 Tylenol Extra Strength PO 03/16/20 00:46 1,000 mg ONETIME ONE Administration Diltiazem HCl 15 mg 03/15/20 22:11 Diltiazem IVPUSH 03/15/20 22:12 NOW ONE Sodium Chloride 1,000 mls @ 1,000 mls/hr 03/15/20 22:30 03/15/20 22:36 Normal Saline IV 03/15/20 23:29 1,000 mls/hr .Bolus ONE Administration Iopamidol 100 ml 03/15/20 23:51 03/15/20 23:52 Isovue-370 (76%) IVPUSH 03/15/20 23:52 100 ml ONETIME ONE Administration Departure - Departure Time of Disposition: 02:10 Disposition: Home, Self-Care 01 Condition: Good Clinical Impression: Pyelonephritis - Discharge Information *PRESCRIPTION DRUG MONITORING PROGRAM REVIEWED*: Not Applicable *COPY OF PRESCRIPTION DRUG MONITORING REPORT IN PATIENT ALAINA: Not Applicable Instructions: Pyelonephritis, Adult, [id number] Referrals: [facility] - Family Practice [Provider Group] - 1 Week (For follow-up of pyelonephritis.) Forms: ED Department Discharge Additional Instructions: Be sure to take all of your prescribed antibiotic medications, even if you are feeling better. Take [id number] acetaminophen and ibuprofen as directed on package for pain. Return to the emergency department immediately if you are feeling worse. The following information is given to patients seen in the emergency department who are being discharged to home. This information is to outline your options for follow-up care. We provide all patients seen in our emergency department with a follow-up referral. The need for follow-up, as well as the timing and circumstances, are variable depending upon the specifics of your emergency department visit. If you don't have a primary care physician on staff, we will provide you with a referral. We always advise you to contact your personal physician following an emergency department visit to inform them of the circumstance of the visit and for follow-up with them and/or the need for any referrals to a consulting specialist. The emergency department will also refer you to a specialist when appropriate. This referral assures that you have the opportunity for follow-up care with a specialist. All of these measure are taken in an effort to provide you with optimal care, which includes your follow-up. Under all circumstances we always encourage you to contact your private physician who remains a resource for coordinating your care. When calling for follow-up care, please make the office aware that this follow-up is from your recent emergency room visit. If for any reason you are refused follow-up, please contact the [facility] Emergency Department at and asked to speak to the emergency department charge nurse. If you do not have a primary care physician that is caring for you, you can contact these clinics below to set up an appointment to establish care: [facility] - [facility] [address] [place] [id number] [facility] [address] [place] [id number] Sepsis Event Note - Evaluation Sepsis Screening Result: No Definite Risk - Focused Exam Vital Signs: Vital Signs Temp Pulse Resp BP Pulse Ox 03/16/20 02:06 89 18 97/52 L 98 03/16/20 00:00 98 16 100/55 L 97 03/15/20 22:15 36.3 C 128 H 16 113/60 96 Date Exam was Performed: 03/16/20 Time Exam was Performed: 06:45 - My Orders Last 24 Hours: My Active Orders 03/15/20 22:30 CULTURE BLOOD [BC] Stat Sodium Chloride 0.9% [Saline Flush] 10 ml FLUSH ASDIRECTED PRN Sodium Chloride 0.9% [Saline Flush] 2.5 ml FLUSH ASDIRECTED PRN Blood Culture x2 Reflex Set [OM.PC] Stat Pulse Oximetry Continuous Monitoring [OM.PC] Routine Saline Lock Insert [OM.PC] Stat 03/15/20 22:44 CULTURE BLOOD [BC] Stat 03/16/20 00:00 CULTURE URINE [RM] Stat - Assessment/Plan Last 24 Hours: My Active Orders 03/15/20 22:30 CULTURE BLOOD [BC] Stat Sodium Chloride 0.9% [Saline Flush] 10 ml FLUSH ASDIRECTED PRN Sodium Chloride 0.9% [Saline Flush] 2.5 ml FLUSH ASDIRECTED PRN Blood Culture x2 Reflex Set [OM.PC] Stat Pulse Oximetry Continuous Monitoring [OM.PC] Routine Saline Lock Insert [OM.PC] Stat 03/15/20 22:44 CULTURE BLOOD [BC] Stat 03/16/20 00:00 CULTURE URINE [RM] Stat
[2020-03-15] MEDS ORDERED: Iopamidol 755 Mg/ML 100 ML Bottle IVPUSH ONE (23:51)
--- NOTE | 2020-03-16 00:06 | CR ---
INDICATION: sepsis, report of cough TECHNIQUE: Chest 2 views. COMPARISON: None. FINDINGS: Cardiovascular and mediastinum: Heart size and vasculature are normal in caliber and appearance. Mediastinum is within normal limits. Lungs and pleural spaces: Lungs are clear. No sign of infiltrate or mass. No sign of pleural effusion. No pneumothorax. Bones and soft tissues: No significant findings. IMPRESSION: Unremarkable chest. Dictated by: Eric Polk MD @ 03/16/2020 00:03:48 (Electronically Signed)
--- NOTE | 2020-03-16 00:43 | CT ---
INDICATION: Right lower quadrant pain and weakness TECHNIQUE: Axial images were obtained from the diaphragm to the pubic symphysis. Reformats were obtained in the coronal and sagittal plane. IV Contrast: 100 cc Isovue 370 Oral Contrast: None COMPARISON: None. FINDINGS: Lower chest: Unremarkable. Liver: Unremarkable. Normal in size and attenuation. No masses. Gallbladder and bile ducts: Unremarkable. No stones or inflammation. No biliary dilatation. Spleen: Unremarkable. Normal in size without mass. Pancreas: Unremarkable. No mass or inflammation. Adrenal glands: Unremarkable. No nodules. Kidneys: Patchy wedge-shaped areas of hypoenhancement right kidney. No hydronephrosis. Vasculature: Unremarkable. GI tract: The stomach is unremarkable. No dilated loops of large or small intestine. Appendix is seen and is unremarkable. Pelvis: Trace pelvic free fluid. No adnexal mass. Bladder unremarkable. Bones: Unremarkable for age. IMPRESSION: 1. Mild patchy areas of right renal enhancement suspicious for pyelonephritis. No abscess. 2. Otherwise, remainder of the abdomen and pelvis is unremarkable. Normal appendix. Please note that all CT scans at this facility use dose modulation, iterative reconstruction, and/or weight-based dosing when appropriate to reduce radiation dose to as low as reasonably achievable. Dictated by Romulo Covington MD @ Mar 16 2020 12:34AM Signed by Dr. Romulo Covington @ Mar 16 2020 12:41AM
[2020-03-16] MEDS ORDERED: Acetaminophen 500 MG Tab PO ONE (00:45)
--- NOTE | 2020-03-16 01:54 | US ---
INDICATION: Right pelvic pain TECHNIQUE: Ultrasound pelvis transvaginal for better assessment or to better visualize the endometrium. Real-time sonographic images with spectral and color Doppler imaging of the ovaries were obtained. COMPARISON: None FINDINGS: Uterus: 6.0 x 2.1 x 2.6 cm. Normal echotexture of the myometrium. No masses. Endometrium: Transvaginal imaging was performed to better evaluate the endometrium. Endometrial thickness measures 4 mm. No sign of endometrial mass or fluid. Right ovary measures 2.8 x 1.1 x 2.6 cm and left ovary measures 1.0 x 1.5 x 2.2 cm. No ovarian or adnexal masses. Normal blood flow is demonstrated in both ovaries. Cul-de-sac: Trace free fluid. IMPRESSION: Normal pelvic ultrasound. Normal sonographic appearance of the ovaries. Trace free fluid, within physiologic limits. Dictated by Romulo Covington MD @ Mar 16 2020 1:49AM Signed by Dr. Romulo Covington @ Mar 16 2020 1:52AM
[2020-03-16 07:07] VITALS: BP 97/55; PULSE 91
== END 2020-03-16 02:28 | disposition home or self-care (01) ==
LOC: MW.ED 22:00
DX: N12 Tubulo-interstitial nephritis, not specified as acute or chronic (principal); R55 Syncope and collapse; F31.9 Bipolar disorder, unspecified; F41.9 Anxiety disorder, unspecified; F90.9 Attention-deficit hyperactivity disorder, unspecified type; Z88.0 Allergy status to penicillin; Z88.1 Allergy status to other antibiotic agents; Z79.899 Other long term (current) drug therapy
CPT/HCPCS: 36415; 71046; 74177; 76830; 80053; 81001; 83605; 84484; 84703; 85025; 85610; 86140; 87040; 87086; 87088; 87186; 96360; 99285; A9270; J7030; Q9967; 99283